=== PATIENT | female | born 1960 | race Caucasian/White ===

== ENCOUNTER 2018-11-24 17:51 | Emergency (ER) | payer OTHER, SELFPAY ==
[2018-11-24 17:55] VITALS: BP 197/112; PULSE 56; RESP 16; O2SAT 100; BMI 19.8
--- NOTE | 2018-11-24 18:06 | DI.RAD.S_ITS ---
PROCEDURE: XR CHEST 1V INDICATIONS: chest pain TECHNIQUE: One view of the chest was acquired. COMPARISON: None. FINDINGS: Surgical changes and devices: None. Lungs and pleura: Lungs are clear. No pleural effusions or pneumothorax. Mediastinum: Mediastinal contours appear normal. Heart size is normal. Bones and chest wall: No suspicious bony lesions. Overlying soft tissues appear unremarkable. IMPRESSION: No acute process. Dictated by: Polina Liriano M.D. on 11/24/2018 at 18:33 Approved by: Polina Liriano M.D. on 11/24/2018 at 18:34
[2018-11-24 18:10] VITALS: BP 192/111; PULSE 71; RESP 16; O2SAT 100
[2018-11-24 18:16] VITALS: BP 200/128; PULSE 63; RESP 70; O2SAT 100
--- NOTE | 2018-11-24 18:19 | DI.CT.S_ITS ---
PROCEDURE: CT HEAD/BRAIN WO CON INDICATIONS: right eye trouble, high bp no tpa TECHNIQUE: Noncontrast 4.5 mm thick angled axial sections acquired from the foramen magnum to the vertex, with coronal and sagittal reformats. For radiation dose reduction, the following was used: automated exposure control, adjustment of mA and/or kV according to patient size. COMPARISON: None. FINDINGS: Image quality: Excellent. CSF spaces: Basal cisterns are patent. No extra-axial fluid collections. The ventricles are symmetric in size and shape. Brain: No intracranial bleeds or masses. There is cerebral volume loss for age, with resultant ventricular and sulcal prominence. There are periventricular and deep white matter chronic small vessel ischemic changes. There is intracranial internal carotid artery atherosclerosis. Skull and face: Calvarium and visualized facial bones appear intact, without suspicious lesions. Sinuses: Visualized sinuses and mastoids are clear. IMPRESSION: No acute intracranial abnormality. Dictated by: Polina Liriano M.D. on 11/24/2018 at 18:39 Approved by: Polina Liriano M.D. on 11/24/2018 at 18:40
[2018-11-24 18:21] LABS: Add Manual Diff / Slide Review NO; Basophils Absolute Auto 100 /uL (0-100); Basophils Percent Auto 0.8 % (0-2); Eosinophils Absolute Auto 200 /uL (0-450); Eosinophils Percent Auto 2.3 % (2-4); Hematocrit 40.6 % (36-46); Hemoglobin 13.3 g/dL (12.0-16.0); Lymphocytes Absolute Auto 1400 /uL (1100-4500); Lymphocytes Percent Auto 18.8 % (25-40); Mean Corpuscular HGB Conc 32.8 % (30-36); Mean Corpuscular Hemoglobin 30.8 PG (26-34); Mean Corpuscular Volume 93.9 fL (80-100); Monocytes Absolute Auto 500 /uL (0-900); Monocytes Percent Auto 7.2 % (3-14); Neutrophils Absolute Auto 5200 /uL (1500-7000); Neutrophils Percent Auto 70.9 % (50-75); Platelet Count 350 X10^3/uL (150-400); Red Blood Cell Count 4.32 X10^6/uL (4.0-5.2); Red Cell Distribution Width 13.1 % (11.6-14.8); White Blood Cell Count 7.4 X10^3/uL (4.5-11.0)
[2018-11-24 18:27] LABS: Prothrombin Time 11.2 SECONDS (10.1-12.7)
--- NOTE | 2018-11-24 18:29 | ED_ITS ---
HPI - Chest Pain General Chief Complaint: Chest Pain Stated Complaint: HEART IS POUNDING, VISION IS WIERD Time Seen by Provider: 11/24/18 18:11 Source: patient Mode of arrival: ambulatory History of Present Illness HPI narrative: Patient is a 58-year-old female who presents with heart pounding and right eye trouble. She has also noticed that her blood pressure is significantly elevated. She has no known history of hypertension she is not on any medication. The last 2 days she says she just has not felt right. She says her right eyelid she can't open, while it does but it is slow. She denies any shortness of breath no extremity weakness no nausea. MD complaint: chest pain Related Data Previous Rx's Medication Instructions Recorded carvedilol 6.25 mg PO BID #30 tab 11/24/18 Allergies Allergy/AdvReac Type Severity Reaction Status Date / Time No Known Drug Allergies Allergy Verified 11/24/18 17:55 Review of Systems Review of Systems ROS Unobtainable: All systems reviewed & are unremarkable except as noted in HPI and below Constitutional Denies chills, Denies fever(s), Denies lethargy and Denies weakness Eyes Reports as per HPI Cardiovascular Reports chest pain, Reports palpitations, Denies dyspnea and Denies dyspnea on exertion Respiratory Denies cough, Denies dyspnea, Denies dyspnea on exertion and Denies wheezing Gastrointestinal Gastrointestinal: Denies abdominal pain, Denies change in bowel habits, Denies diarrhea, Denies nausea and Denies vomiting Musculoskeletal Denies back pain, Denies muscle weakness, Denies numbness and Denies tingling Integumentary/Breasts Denies pruritus, Denies erythema, Denies rash and Denies wounds Neurologic Denies numbness, Denies tingling and Denies weakness Endocrine Reports palpitations Allergic/Immunologic Denies wheezing PFSH Medical History Patient denies medical problems (Acute) Social History Smoking Status: Never smoker alcohol intake: current additional social history: Daily drinker 1-2 glasses Social History Smoking Status: Never smoker alcohol intake: current additional social history: Daily drinker 1-2 glasses Comment: Family history of CVA Exam Initial Vital Signs Initial Vital Signs: Vital Signs Pulse Rate 56 L 11/24/18 17:55 Respiratory Rate 16 11/24/18 17:55 Blood Pressure 197/112 H 11/24/18 17:55 Pulse Oximetry 100 11/24/18 17:55 GENERAL: Well-appearing, well-nourished and in no acute distress. HEENT: Head atraumatic,EOMI, pupils reactive, CARDIOVASCULAR: Regular rate and rhythm without murmurs, rubs or gallops. RESPIRATORY: Breath sounds equal bilaterally, no wheezes rales or rhonchi. ABDOMEN: Soft, nontender. Normoactive bowel sounds all 4 quadrants. No guarding or rebound. EXTREMITIES: Normal range of motion, no clubbing or edema. Neurovascularly intact NEUROLOGICAL: Alert and oriented x4.Normal gait and speech. Cranial nerves II through XII grossly intact. Good [id number], good [id number], strength equal bilaterally, no dysarthria or aphasia, sensation in tact to soft touch bilaterally, no visual changes, no facial droop SKIN: Warm, dry, no laceration, no petechiae, no rashes or lesions. Eyes Other: delayed cranial nerve 3 on right side Course Orders Ordered: ED Orders 11/24/18 17:58 EKG-12 Lead Stat 11/24/18 18:06 XR chest 1V Stat 11/24/18 18:15 Complete Blood Count AUTO DIFF Stat Comprehensive Metabolic Panel Stat Lipase Stat Partial Thromboplastin Time Stat Prothrombin Time INR Stat Troponin & CK Cardiac Panel Stat 11/24/18 18:19 CT head/brain wo con Stat Discontinued Medications Aspirin (Aspirin Chew) 324 mg PO NOW ONE Stop: 11/24/18 18:07 Last Admin: 11/24/18 18:21 Dose: Labetalol HCl (Trandate) 20 mg IV NOW ONE Stop: 11/24/18 18:44 Last Admin: 11/24/18 18:49 Dose: 20 mg Vital Signs - 8 hr 11/24/18 17:55 11/24/18 18:10 11/24/18 18:16 Pulse Rate 56 L 71 63 Respiratory Rate 16 16 70 H Blood Pressure 197/112 H Blood Pressure [Right Arm] 192/111 H 200/128 H Pulse Oximetry 100 100 100 11/24/18 18:49 11/24/18 19:54 Pulse Rate 64 60 Respiratory Rate Blood Pressure 182/105 H 172/100 H Blood Pressure [Right Arm] Pulse Oximetry MDM - Chest Pain Lab Data Attestation: I reviewed the patient's lab results. Result diagrams: 11/24/18 18:15 02/05/19 18:15 Lab Results 11/24/18 11/24/18 11/24/18 Range/Units 18:15 18:15 18:15 WBC 7.4 (4.5-11.0) X10^3/uL RBC 4.32 (4.0-5.2) X10^6/uL Hgb 13.3 (12.0-16.0) g/dL Hct 40.6 (36-46) % MCV 93.9 (80-100) fL MCH 30.8 (26-34) PG MCHC 32.8 (30-36) % RDW 13.1 (11.6-14.8) % Plt Count 350 (150-400) X10^3/uL Neut % (Auto) 70.9 (50-75) % Lymph % (Auto) 18.8 L (25-40) % Jackson % (Auto) 7.2 (3-14) % Eos % (Auto) 2.3 (2-4) % Baso % (Auto) 0.8 (0-2) % Neut # (Auto) 5200 (5335-0882) /uL Lymph # (Auto) 1400 (6044-6195) /uL Jackson # (Auto) 500 (0-900) /uL Eos # (Auto) 200 (0-450) /uL Baso # (Auto) 100 (0-100) /uL PT 11.2 (10.1-12.7) SECONDS INR 1.0 (0.9-1.3) APTT 30 (26.4-36.2) SECONDS Sodium 139 (137-145) mmol/L Potassium 3.5 (3.4-5.1) mmol/L Chloride 103 (98-107) mmol/L Carbon Dioxide 27 (22-32) mmol/L BUN 12 (7-17) mg/dL Creatinine 0.70 (0.52-1.04) mg/dL Estimated GFR > 60.0 (>60) mL/min BUN/Creatinine Ratio 17.1 (6-22) Glucose 93 (70-100) mg/dL Calcium 9.8 (8.4-10.2) mg/dL Total Bilirubin 0.7 (0.2-1.3) mg/dL AST 31 (14-36) IU/L ALT 22 (9-52) IU/L Alkaline Phosphatase 90 (38-126) U/L Total Creatine Kinase 49 (30-135) U/L CK-MB (CK-2) TNP CK-MB (CK-2) Rel Index TNP Troponin I < 0.012 (0.01-0.034) ng/mL Total Protein 8.0 (6.3-8.2) g/dL Albumin 4.9 (3.5-5.0) g/dL Globulin 3.1 (1.7-4.1) g/dL Albumin/Globulin Ratio 1.6 (1.0-2.8) Lipase 93 (23-300) U/L Imaging Data CT scan - head: Radiologist's impression: PROCEDURE: CT HEAD/BRAIN WO CON INDICATIONS: right eye trouble, high bp no tpa TECHNIQUE: Noncontrast 4.5 mm thick angled axial sections acquired from the foramen magnum to the vertex, with coronal and sagittal reformats. For radiation dose reduction, the following was used: automated exposure control, adjustment of mA and/or kV according to patient size. COMPARISON: None. FINDINGS: Image quality: Excellent. CSF spaces: Basal cisterns are patent. No extra-axial fluid collections. The ventricles are symmetric in size and shape. Brain: No intracranial bleeds or masses. There is cerebral volume loss for age , with resultant ventricular and sulcal prominence. There are periventricular and deep white matter chronic small vessel ischemic changes. There is intracranial internal carotid artery atherosclerosis. Skull and face: Calvarium and visualized facial bones appear intact, without suspicious lesions. Sinuses: Visualized sinuses and mastoids are clear. IMPRESSION: No acute intracranial abnormality. Dictated by: Polina Liriano M.D. on 11/24/2018 at 18:39 Chest x-ray: Radiologist's impression: PROCEDURE: XR CHEST 1V INDICATIONS: chest pain TECHNIQUE: One view of the chest was acquired. COMPARISON: None. FINDINGS: Surgical changes and devices: None. Lungs and pleura: Lungs are clear. No pleural effusions or pneumothorax. Mediastinum: Mediastinal contours appear normal. Heart size is normal. Bones and chest wall: No suspicious bony lesions. Overlying soft tissues appear unremarkable. IMPRESSION: No acute process. Dictated by: Polina Liriano M.D. on 11/24/2018 at 18:33 ECG Data Attestation: I personally reviewed and interpreted this ECG as follows: Prior ECG tracings: not available for review Interpretation: Normal sinus rhythm rate [address] changes no T-wave inversion ID 144, no PVCs MDM Narrative Medical decision making narrative: PVCs are noted on the monitor. She does seem to be symptomatic from them. Her blood pressure does remain quite elevated. Decision for labetalol given. She responds well to labetalol however diastolic remains elevated above 100. She has an appointment with a new PCP December [address] Foster. I will start her on some blood pressure medication she does have family history of stroke. She is overall feeling much better. Less frequent PVCs. She has a new blood pressure cuff monitor at home we discussed that she should log and track her blood pressure medication. We discussed lifestyle changes to help reduce blood pressure. Discharge Plan Departure Patient Disposition: Home Clinical Impression: Elevated blood pressure reading, Symptomatic PVCs Discharge Date/Time: 11/24/18 19:57 Interventions: ED Discharge Assessment Last Done: 11/24/18 19:56 Instructions: Premature Ventricular Beats, Essential Hypertension Activity Restrictions/Additional Instructions: *You have been diagnosed with elevated blood pressure PVCs *What to do: monitor your blood pressure, take blood pressure once a day at the same time every day and record for your primary care provider. *Continue to take medications as directed Coreg 6.25 mg twice a day *Follow up with your primary care provider in 2-3 days *Return to ER if you should have increasing chest pain, lightheadedness, persistent elevated blood pressure with top number, the systolic number, greater than 185 or any new, worsening or concerning symptoms Prescriptions: New carvedilol 6.25 mg tablet 6.25 mg PO BID Qty: 30 RF: 0 Referrals: Brittany Stahl MD [Primary Care Provider] - Chastity Foster DO [Physician] -
[2018-11-24 18:30] LABS: PTT Partial Thromboplastin Tim 30 SECONDS (26.4-36.2)
[2018-11-24 18:31] LABS: Alanine Aminotransferase 22 IU/L (9-52); Albumin 4.9 g/dL (3.5-5.0); Albumin Globulin Ratio 1.6 (1.0-2.8); Alkaline Phosphatase 90 U/L (38-126); Aspartate Aminotransferase 31 IU/L (14-36); BUN Creatinine Ratio 17.1 (6-22); Bilirubin Total 0.7 mg/dL (0.2-1.3); Blood Urea Nitrogen 12 mg/dL (7-17); Calcium 9.8 mg/dL (8.4-10.2); Carbon Dioxide 27 mmol/L (22-32); Chloride 103 mmol/L (98-107); Creatine Kinase 49 U/L (30-135); Estimated Glomerular Filt Rate > 60.0 mL/min (>60); Globulin 3.1 g/dL (1.7-4.1); Glucose 93 mg/dL (70-100); HEMOLYSIS < 15 (0-50); Lipase 93 U/L (23-300); Potassium 3.5 mmol/L (3.4-5.1); Sodium 139 mmol/L (137-145)
[2018-11-24 18:49] VITALS: BP 182/105; PULSE 64
[2018-11-24 18:49] LABS: Troponin I < 0.012 ng/mL (0.01-0.034)
[2018-11-24] MEDS: LABETALOL 20 MG/4 ML SYRINGE IV (18:49)
[2018-11-24 19:54] VITALS: BP 172/100; PULSE 60
--- NOTE | 2018-11-24 19:54 | PC.NURSE ---
Edcuation completed on hypertension, lifestyle changes, medication, medications and need for close follow up. Pt and verbalized understanding.
== END 2018-11-24 19:57 | disposition home or self-care (01) ==
PROVIDERS: Emergency Provider Emergency Medicine; PCP Family Medicine
DX: R03.0 Elevated blood-pressure reading, without diagnosis of hypertension (principal); I49.3 Ventricular premature depolarization
CPT/HCPCS: 36591; 70450; 71045; 80053; 82550; 83690; 84484; 85025; 85610; 85730; 93005; 96374; 99283; 99285

== ENCOUNTER → 2018-12-01 15:08 | Outpatient (CLI) | payer OTHER, SELFPAY ==
--- NOTE | 2018-12-01 15:12 | DI.RAD.S_ITS ---
PROCEDURE: XR LUMBAR SPINE MIN 4V INDICATIONS: low back pain TECHNIQUE: 5 views of the lumbar spine were acquired. COMPARISON: None. FINDINGS: Bones: There are 5 nonrib-bearing lumbar vertebral bodies. 37.8? dextroscoliosis is present centered at L1-L2. Degenerative changes including intervertebral disc space narrowing and osteophytosis are present throughout the lumbar spine. No wedge compression deformities. Soft tissues: Overlying bowel gas pattern is normal. No suspicious soft tissue calcifications. Oblique images: No pars defects are visualized at L4-S1. The more superior pars interarticularis regions are poorly characterize given scoliotic deformity. IMPRESSION: 1. Severe right dextroscoliosis. 2. Degenerative changes. 3. No spondylolysis or spondylolisthesis within the lower lumbar spine. Dictated by: Idalia Barfield M.D. on 12/01/2018 at 16:02 Approved by: Idalia Barfield M.D. on 12/01/2018 at 16:04
--- NOTE | 2018-12-01 15:12 | DI.RAD.S_ITS ---
PROCEDURE: XR THORACIC SPINE 3V INDICATIONS: low back pain TECHNIQUE: 3 views of the thoracic spine were acquired. COMPARISON: None. FINDINGS: Bones: A no acute fracture dislocation. No compression deformity. 36? dextroscoliosis centered at L1 is noted. There are 12 pairs of ribs. Soft tissues: No paravertebral stripe thickening. IMPRESSION: Severe dextroscoliosis. No wedge compression deformities. Dictated by: Idalia Barfield M.D. on 12/01/2018 at 16:04 Approved by: Idalia Barfield M.D. on 12/01/2018 at 16:05
--- NOTE | 2018-12-01 15:12 | DI.RAD.S_ITS ---
PROCEDURE: XR SACRUM COCCYX MIN 2V INDICATIONS: low back pain TECHNIQUE: 3 views of the sacrum and coccyx acquired. COMPARISON: None. FINDINGS: Bones: No fractures or dislocations. No suspicious bony lesions. Soft tissues: Visualized bowel gas pattern is normal. No suspicious soft tissue densities. Phleboliths are scattered throughout the pelvis. IMPRESSION: No radiographic abnormalities. Dictated by: Idalia Barfield M.D. on 12/01/2018 at 16:05 Approved by: Idalia Barfield M.D. on 12/01/2018 at 16:05
[2018-12-03 16:32] LABS: Estradiol 17 pg/mL
== END ==
PROVIDERS: PCP Family Medicine; Visit Provider Physician Assistant
DX: M54.5 Low back pain (principal); M41.86 Other forms of scoliosis, lumbar region; M47.816 Spondylosis without myelopathy or radiculopathy, lumbar region; L85.3 Xerosis cutis
CPT/HCPCS: 36415; 72072; 72110; 72220; 82670; 83001; 83002

== ENCOUNTER → 2018-12-07 11:07 | Outpatient (CLI) | payer OTHER, SELFPAY ==
[2018-12-07 13:26] LABS: Thyroid Stimulating Hormone 1.28 uIU/mL (0.47-4.68)
== END ==
PROVIDERS: PCP Family Medicine; Visit Provider Family Medicine
DX: I10 Essential (primary) hypertension (principal)
CPT/HCPCS: 36415; 84443

== ENCOUNTER → 2018-12-18 08:13 | Outpatient (CLI) | payer OTHER, SELFPAY ==
--- NOTE | 2018-12-18 09:38 | PM.TREADMILL ---
Cardiac Stress Test Report Referral & Results Date Patient Seen: 12/18/18 Requesting provider: Chastity Foster Rest ECG: Unremarkable Procedure Note: Today following both written and verbal informed consent, the patient was exercised according to a standard Noe protocol. The patient exercised for a total of 12 min 32 sec achieving a maximum heart rate of 156. Patient's maximum systolic blood pressure was 200. This was an estimated 12.8 MET's. There are no ST-T segment changes Amazing exercise capacity well off the scale estimate her exercise capacity equal that of a 19-year-old woman Occasional PVCs seen in early recovery. None seen with exercise or increased heart rates Impression: No evidence of ischemia Ventricular dysrhythmia as above Please note: Actual ECG tracings can be found in the PACS system.
== END ==
PROVIDERS: PCP Family Medicine; Visit Provider Family Medicine
DX: R07.9 Chest pain, unspecified (principal); I49.3 Ventricular premature depolarization
CPT/HCPCS: 93016; 93017; 93018